=== PATIENT | male | born 1950 | race Caucasian/White ===

== ENCOUNTER 2019-04-06 08:47 | Outpatient (CLI) | payer MEDICARE, SELFPAY ==
--- NOTE | ~2019-04-06 | CT_ITS ---
EXAMINATION: CT lung screening DATE: 04/06/2019 09:25 INDICATION: Personal history of nicotine dependence, current smoker with 53 pack year history TECHNIQUE: Computed tomography (CT) of the chest was performed without intravenous contrast. The dose -length product (DLP) was 287.00 mGy-cm. Automated exposure control and iterative reconstruction tech nique were employed. COMPARISON: None FINDINGS: There is a 3 mm nodule of the right upper lobe on image 44. There is a 5 mm subpleural nodu le of the right upper lobe on image 54. There is a 6 mm subpleural nodule of the right lower lobe on image 84. There is mild emphysema. No pleural effusion or pneumothorax is identified. No pathological ly enlarged thoracic lymph nodes are identified. The heart size is normal. The lungs are free of acut e opacities. Calcified right hilar and mediastinal lymph nodes are consistent with old granulomatous disease. There is calcified coronary artery atherosclerosis. A 5 mm nonobstructing stone is present i n the right kidney. There is a 1.9 cm mildly hyperattenuating exophytic lesion of the right mid kidne y. A cyst is noted in the left kidney upper pole. There is moderate thoracic spondylosis. IMPRESSION: 1. Lung-RADS category 3S: Probably benign. Followup with noncontrast low-dose chest CT in 6 months is recommended. 2. Indeterminate exophytic lesion of the right mid kidney which could reflect proteinaceous cyst or s olid neoplasm. Recommend further evaluation by CT or MRI without and with contrast. Reviewed, dictated and finalized at location A. STICAL TILE DRILL PRESS OPERATOR IMPRESSION: 1. Lung-RADS category 3S: Probably benign. Followup with noncontrast low-dose c hest CT in 6 months is recommended. 2. Indeterminate exophytic lesion of the right mid kidney which could reflect p roteinaceous cyst or solid neoplasm. Recommend further evaluation by CT or MRI without and with contrast.
[2019-04-06 10:13] LABS: Blood Urea Nitrogen 16 mg/dL (9-20); Calcium 8.9 mg/dL (8.4-10.2); Carbon Dioxide 26 mmol/L (22-30); Chloride 104 mmol/L (98-107); Cholesterol 205 mg/dL (0-200); Estimated Glomerular Filt Rate > 60; Glucose 102 mg/dL (75-110); HDL Direct 42 mg/dL; Potassium 4.5 mmol/L (3.4-5.0); Sodium 139 mmol/L (137-145); Triglycerides 214 mg/dL (<150)
[2019-04-06 10:24] LABS: LDL Cholesterol Direct 108 mg/dL
[2019-04-06 14:08] LABS: Prostate Specific Antigen 0.6 ng/mL (< OR = 4.0)
== END 2019-04-06 08:48 | disposition home or self-care (01) ==
LOC: ANHIMG 08:50
PROVIDERS: PCP Internal Medicine; Visit Provider Internal Medicine
DX: Z12.2 Encounter for screening for malignant neoplasm of respiratory organs (principal); Z87.891 Personal history of nicotine dependence; R91.8 Other nonspecific abnormal finding of lung field; I10 Essential (primary) hypertension; E78.5 Hyperlipidemia, unspecified; Z12.5 Encounter for screening for malignant neoplasm of prostate
CPT/HCPCS: 36415; 80048; 80061; 84153; G0103; G0297

== ENCOUNTER 2019-04-13 08:45 | Outpatient (CLI) | payer MEDICARE, SELFPAY ==
--- NOTE | ~2019-04-13 | MR_ITS ---
EXAMINATION: MR abdomen wo/w con DATE: 04/13/2019 10:08 INDICATION: Disorder of kidney and ureter, unspecified. TECHNIQUE: Magnetic resonance imaging (MRI) of the abdomen was performed without and with 20 mL Multi Vidhi intravenous contrast. Sequences included coronal T2-weighted FS FSE, coronal and axial FIESTA F S, coronal LAVA-flex, axial LAVA, axial T2-weighted FSE, axial T1-weighted dual-echo FSPGR, axial STI R FSE, and axial DWI. Postcontrast sequences included coronal LAVA-flex and a time course of axial LA VA. COMPARISON: Chest CT 04/06/2019 FINDINGS: There are cysts in the liver measuring up to 11 mm. The gallbladder, spleen, pancreas, and adrenal gl ands are normal. There are simple cysts in the kidneys measuring up to 11 mm on the right. There is a 1.8 cm exophytic hemorrhagic cyst in right kidney. There are no dilated loops of bowel. There are no pathologically enlarged lymph nodes. There is no free intraperitoneal fluid. IMPRESSION: 1. 1.8 cm hemorrhagic cyst of right kidney correlating with the CT abnormality. Reviewed, dictated and finalized at location A. SIFICATION CASE MANAGER
[2019-04-13 10:19] LABS: Blood Urea Nitrogen 21 mg/dL (8-26); Estimated Glomerular Filt Rate > 60
== END 2019-04-13 08:46 | disposition home or self-care (01) ==
PROVIDERS: PCP Internal Medicine; Visit Provider Internal Medicine
DX: N28.1 Cyst of kidney, acquired (principal)
CPT/HCPCS: 74183; A9577

== ENCOUNTER 2019-09-04 11:13 | Outpatient (CLI) | payer MEDICARE, SELFPAY ==
--- NOTE | ~2019-09-04 | CT_ITS ---
EXAMINATION: CT lung screening EXAM DATE: 09/04/2019 11:34 INDICATION: Personal history of nicotine dependence. TECHNIQUE: Spiral low dose CT of the chest without contrast. Axial, coronal and sagittal images were reviewed. The dose-length product (DLP) for this examination was 243.36 mGy-cm. The exposure was t ailored according to patient size (auto mA exposure control), and iterative reconstruction (ASIR) was used as additional dose reduction technique. Comparison is made to prior examination from 04/06/2019. FINDINGS: Previously seen 3 mm upper lobe nodule unchanged on image 42. The 2 other previously descr ibed right lung pleural-based nodules have resolved. There are no new or suspicious pulmonary nodules . Small amount of linear by basilar atelectasis. Tracheobronchial tree is patent. There is no medi astinal, hilar or axillary lymphadenopathy. There are no pleural or pericardial effusions. There is no pneumothorax. Heart normal in size. There is mild coronary arterial calcification, arterial sclerosis. There is mild emphysema. Upper abdomen is unremarkable. There is thoracic spondylosis w ithout osteoblastic or osteolytic lesions identified. IMPRESSION: Lung-RADS category 2, benign appearance or behavior (<1% chance of malignancy); recommend continued LDCT screening in 1 year. Reviewed, dictated and finalized at location B.
== END 2019-09-04 11:14 | disposition home or self-care (01) ==
PROVIDERS: PCP Internal Medicine; Visit Provider Internal Medicine
DX: Z12.2 Encounter for screening for malignant neoplasm of respiratory organs (principal); Z87.891 Personal history of nicotine dependence; R91.8 Other nonspecific abnormal finding of lung field
CPT/HCPCS: G0297

== ENCOUNTER 2019-10-03 10:01 | Outpatient (CLI) | payer MEDICARE, SELFPAY ==
[2019-10-03 10:32] LABS: Alanine Aminotransferase 47 U/L (4-50); Albumin Level 4.5 g/dL (3.5-5.1); Alkaline Phosphatase 86 U/L (38-126); Aspartate Amino Transferase 35 U/L (17-59); Bilirubin,Total 0.7 mg/dL (0.2-1.3); Blood Urea Nitrogen 15 mg/dL (9-20); Calcium 8.6 mg/dL (8.4-10.2); Carbon Dioxide 22 mmol/L (22-30); Chloride 105 mmol/L (98-107); Cholesterol 240 mg/dL (0-200); Estimated Glomerular Filt Rate > 60; Glucose 102 mg/dL (75-110); HDL Direct 48 mg/dL; Potassium 4.8 mmol/L (3.4-5.0); Sodium 136 mmol/L (137-145); Triglycerides 212 mg/dL (<150)
[2019-10-03 10:41] LABS: LDL Cholesterol Direct 125 mg/dL
[2019-10-03 10:59] LABS: Prostate Specific Antigen 0.4 ng/mL (< OR = 4.0)
== END 2019-10-03 10:02 | disposition home or self-care (01) ==
PROVIDERS: PCP Internal Medicine; Visit Provider Nurse Practitioner
DX: E78.2 Mixed hyperlipidemia (principal); Z12.5 Encounter for screening for malignant neoplasm of prostate
CPT/HCPCS: 36415; 80053; 80061; 84153; G0103

== ENCOUNTER 2019-11-09 10:20 | Outpatient (CLI) | payer MEDICARE, SELFPAY ==
[2019-11-09 11:22] LABS: Cholesterol 175 mg/dL (0-200); HDL Direct 57 mg/dL; Triglycerides 158 mg/dL (<150)
[2019-11-09 11:33] LABS: LDL Cholesterol Direct 76 mg/dL
== END 2019-11-09 10:21 | disposition home or self-care (01) ==
LOC: ANHLAB 10:23
PROVIDERS: PCP Internal Medicine; Visit Provider Nurse Practitioner
DX: E78.2 Mixed hyperlipidemia (principal)
CPT/HCPCS: 36415; 80061

== ENCOUNTER 2020-04-02 13:37 | Outpatient (CLI) | payer MEDICARE, SELFPAY ==
[2020-04-02 14:18] LABS: Alanine Aminotransferase 54 U/L (4-50); Albumin Level 4.5 g/dL (3.5-5.1); Alkaline Phosphatase 76 U/L (38-126); Anion Gap 6 mmol/L (8-16); Aspartate Amino Transferase 45 U/L (17-59); Bilirubin,Total 0.8 mg/dL (0.2-1.3); Blood Urea Nitrogen 18 mg/dL (9-20); Carbon Dioxide 29 mmol/L (22-30); Chloride 100 mmol/L (98-107); Cholesterol 120 mg/dL (0-200); Estimated Glomerular Filt Rate > 60; Glucose 93 mg/dL (75-110); HDL Direct 36 mg/dL; Potassium 4.2 mmol/L (3.4-5.0); Sodium 135 mmol/L (137-145); Triglycerides 116 mg/dL (<150)
[2020-04-02 14:28] LABS: LDL Cholesterol Direct 48 mg/dL
== END 2020-04-02 13:38 | disposition home or self-care (01) ==
PROVIDERS: PCP Internal Medicine; Visit Provider Internal Medicine
DX: E78.2 Mixed hyperlipidemia (principal)
CPT/HCPCS: 36415; 80053; 80061

== ENCOUNTER 2020-10-08 09:12 | Outpatient (CLI) | payer MEDICARE, SELFPAY ==
[2020-10-08 09:45] LABS: Alanine Aminotransferase 34 U/L (4-50); Albumin Level 4.3 g/dL (3.5-5.1); Alkaline Phosphatase 111 U/L (38-126); Anion Gap 11 mmol/L (8-16); Aspartate Amino Transferase 28 U/L (17-59); Bilirubin,Total 0.6 mg/dL (0.2-1.3); Blood Urea Nitrogen 16 mg/dL (9-20); Calcium 9.1 mg/dL (8.4-10.2); Carbon Dioxide 23 mmol/L (22-30); Chloride 104 mmol/L (98-107); Cholesterol 169 mg/dL (0-200); Estimated Glomerular Filt Rate > 60; Glucose 122 mg/dL (65-110); HDL Direct 53 mg/dL; Potassium 4.2 mmol/L (3.4-5.0); Sodium 138 mmol/L (137-145); Triglycerides 120 mg/dL (<150)
[2020-10-08 09:56] LABS: LDL Cholesterol Direct 66 mg/dL
[2020-10-08 10:16] LABS: Prostate Specific Antigen 0.4 ng/mL (< OR = 4.0)
== END 2020-10-08 09:13 | disposition home or self-care (01) ==
PROVIDERS: PCP Internal Medicine; Visit Provider Nurse Practitioner
DX: E78.5 Hyperlipidemia, unspecified (principal); I10 Essential (primary) hypertension; Z79.899 Other long term (current) drug therapy; Z12.5 Encounter for screening for malignant neoplasm of prostate
CPT/HCPCS: 36415; 80053; 80061; 84153; G0103

== ENCOUNTER 2021-04-18 09:42 | Outpatient (CLI) | payer MEDICARE, SELFPAY ==
[2021-04-18 10:32] LABS: Hemoglobin A1C 5.9 % (<5.7)
[2021-04-18 10:34] LABS: Alanine Aminotransferase 40 U/L (4-50); Albumin Level 4.7 g/dL (3.5-5.1); Alkaline Phosphatase 123 U/L (38-126); Anion Gap 6 mmol/L (8-16); Aspartate Amino Transferase 30 U/L (17-59); Bilirubin,Total 0.7 mg/dL (0.2-1.3); Blood Urea Nitrogen 15 mg/dL (9-20); Calcium 9.4 mg/dL (8.4-10.2); Carbon Dioxide 22 mmol/L (22-30); Chloride 109 mmol/L (98-107); Cholesterol 182 mg/dL (0-200); Estimated Glomerular Filt Rate > 60; Glucose 116 mg/dL (65-110); HDL Direct 53 mg/dL; Potassium 4.2 mmol/L (3.4-5.0); Sodium 137 mmol/L (137-145); Triglycerides 148 mg/dL (<150)
[2021-04-18 10:45] LABS: LDL Cholesterol Direct 77 mg/dL
== END 2021-04-18 09:43 | disposition home or self-care (01) ==
PROVIDERS: PCP Internal Medicine; Visit Provider Nurse Practitioner
DX: E78.2 Mixed hyperlipidemia (principal); R73.02 Impaired glucose tolerance (oral)
CPT/HCPCS: 36415; 80053; 80061; 83036

== ENCOUNTER 2021-05-09 08:39 | Outpatient (CLI) | payer MEDICARE, SELFPAY ==
--- NOTE | ~2021-05-09 | CT_ITS ---
EXAMINATION: CT lung screening DATE: 05/09/2021 09:00 INDICATION: Tobacco use TECHNIQUE: Computed tomography (CT) of the chest was performed without intravenous contrast. The dose -length product was 298.17 mGy-cm. Automated exposure control and iterative reconstruction technique were employed. COMPARISON: CT dated 09/04/2019 FINDINGS: No significant pleural or pericardial effusion. Heart size is normal. No thoracic lymphaden opathy. The upper abdomen is unremarkable. There is bibasilar atelectasis. There is a 5 mm fissural n odule on the right, unchanged, likely benign. No new pulmonary nodules or masses. No endobronchial le sions. No acute osseous abnormality. IMPRESSION: 1. Lung-RADS category 2: Benign appearance or behavior. Continue annual screening with noncontrast lo w-dose chest CT in 12 months. Reviewed, dictated and finalized at location B. TION ADVISOR IMPRESSION: 1. Lung-RADS category 2: Benign appearance or behavior. Continue annual screeni ng with noncontrast low-dose chest CT in 12 months.
== END 2021-05-09 08:40 | disposition home or self-care (01) ==
PROVIDERS: PCP Internal Medicine; Visit Provider Internal Medicine
DX: Z12.2 Encounter for screening for malignant neoplasm of respiratory organs (principal); Z87.891 Personal history of nicotine dependence
CPT/HCPCS: 71271

== ENCOUNTER 2021-10-23 09:22 | Outpatient (CLI) | payer MEDICARE, SELFPAY ==
[2021-10-23 10:48] LABS: Prostate Specific Antigen 0.9 ng/mL (< OR = 4.0)
[2021-10-23 11:06] LABS: Hemoglobin A1C 5.8 % (<5.7)
[2021-10-23 11:50] LABS: Alanine Aminotransferase 36 U/L (6-50); Albumin Level 4.3 g/dL (3.5-5.1); Alkaline Phosphatase 114 U/L (38-126); Anion Gap 14 mmol/L (8-16); Aspartate Amino Transferase 31 U/L (17-59); Bilirubin,Total 0.5 mg/dL (0.2-1.3); Blood Urea Nitrogen 15 mg/dL (9-20); Calcium 9.2 mg/dL (8.4-10.2); Carbon Dioxide 14 mmol/L (22-30); Chloride 108 mmol/L (98-107); Cholesterol 135 mg/dL (0-200); Estimated Glomerular Filt Rate > 60; Glucose 106 mg/dL (65-110); HDL Direct 43 mg/dL; Potassium 4.5 mmol/L (3.4-5.0); Sodium 136 mmol/L (137-145); Triglycerides 102 mg/dL (<150)
[2021-10-23 12:00] LABS: LDL Cholesterol Direct 52 mg/dL
== END 2021-10-23 09:23 | disposition home or self-care (01) ==
LOC: ANHLAB 09:26
PROVIDERS: PCP Internal Medicine; Visit Provider Internal Medicine
DX: I10 Essential (primary) hypertension (principal); R73.02 Impaired glucose tolerance (oral); Z79.899 Other long term (current) drug therapy; E78.5 Hyperlipidemia, unspecified; Z12.5 Encounter for screening for malignant neoplasm of prostate
CPT/HCPCS: 36415; 80053; 80061; 83036; 84153; G0103

== ENCOUNTER 2022-05-01 09:34 | Outpatient (CLI) | payer MEDICARE, SELFPAY ==
[2022-05-01 11:41] LABS: Hemoglobin A1C 5.9 % (<5.7)
[2022-05-01 19:46] LABS: Alanine Aminotransferase 33 U/L (6-50); Albumin Level 4.4 g/dL (3.5-5.1); Alkaline Phosphatase 104 U/L (38-126); Anion Gap 4 mmol/L (8-16); Aspartate Amino Transferase 32 U/L (17-59); Bilirubin,Total 0.7 mg/dL (0.2-1.3); Blood Urea Nitrogen 12 mg/dL (9-20); Calcium 8.6 mg/dL (8.4-10.2); Carbon Dioxide 26 mmol/L (22-30); Chloride 105 mmol/L (98-107); Cholesterol 167 mg/dL (0-200); Estimated Glomerular Filt Rate > 60; Glucose 107 mg/dL (65-110); HDL Direct 47 mg/dL; Potassium 4.2 mmol/L (3.4-5.0); Sodium 135 mmol/L (137-145); Triglycerides 124 mg/dL (<150)
[2022-05-01 19:57] LABS: LDL Cholesterol Direct 68 mg/dL
== END 2022-05-01 09:35 | disposition home or self-care (01) ==
LOC: ANHGOSHLAB 09:37
PROVIDERS: PCP Internal Medicine; Visit Provider Nurse Practitioner
DX: E78.5 Hyperlipidemia, unspecified (principal); R73.02 Impaired glucose tolerance (oral)
CPT/HCPCS: 36415; 80053; 80061; 83036

== ENCOUNTER 2022-11-11 10:55 | Outpatient (CLI) | payer OTHER, SELFPAY ==
[2022-11-11 18:31] LABS: Hematocrit 48.5 % (42.0-52.0); Hemoglobin 16.3 g/dL (14.0-18.0); Mean Corpuscular HGB Conc 33.6 g/dl (32-36); Mean Corpuscular Hemoglobin 29.4 pg (26-34); Mean Corpuscular Volume 87.4 fl (80-100); Mean Platelet Volume 10.1 fl (7.4-10.4); Platelet Count Result 270 k/mm3 (150-375); Red Blood Count 5.55 M/mm3 (4.6-6.20); Red Cell Distribution Width 13.4 % (11.5-14.5); White Blood Count 8.7 K/mm3 (4.5-10.0)
[2022-11-11 19:21] LABS: Alanine Aminotransferase 36 U/L (6-50); Albumin Level 4.6 g/dL (3.5-5.1); Alkaline Phosphatase 117 U/L (38-126); Anion Gap 8 mmol/L (8-16); Aspartate Amino Transferase 32 U/L (17-59); Bilirubin,Total 0.7 mg/dL (0.2-1.3); Blood Urea Nitrogen 13 mg/dL (9-20); Calcium 9.2 mg/dL (8.4-10.2); Carbon Dioxide 28 mmol/L (22-30); Chloride 103 mmol/L (98-107); Estimated Glomerular Filt Rate > 60; Glucose 105 mg/dL (65-110); Potassium 4.3 mmol/L (3.4-5.0); Sodium 139 mmol/L (137-145)
[2022-11-11 19:48] LABS: Prostate Specific Antigen 0.5 ng/mL (< OR = 4.0)
[2022-11-11 20:28] LABS: Hemoglobin A1C 6.1 % (<5.7)
== END 2022-11-11 10:56 | disposition home or self-care (01) ==
PROVIDERS: PCP Family Medicine; Visit Provider Family Medicine
DX: Z00.00 Encounter for general adult medical examination without abnormal findings (principal); I10 Essential (primary) hypertension; E78.2 Mixed hyperlipidemia; Z72.0 Tobacco use
CPT/HCPCS: 36415; 80053; 83036; 84153; 85027; G0103

== ENCOUNTER 2022-11-17 15:30 | Outpatient (CLI) | payer MEDICARE, SELFPAY ==
--- NOTE | ~2022-11-17 | CT_ITS ---
EXAMINATION: CT lung screening DATE: 11/17/2022 16:17 INDICATION: Personal history of nicotine dependence, prior smoker with 50 pack year history TECHNIQUE: Computed tomography (CT) of the chest was performed without intravenous contrast. The dose -length product (DLP) was 362.02 mGy-cm. Automated exposure control and iterative reconstruction tech mPortico were employed. COMPARISON: 05/09/2021 FINDINGS: There is mild emphysema. There is a 3 mm nodule of the right upper lobe. There is a 3 mm casiano bpleural nodule of the left upper lobe. There is mild dependent atelectasis. Lungs are free of focal airspace opacities. No pleural effusion or pneumothorax. A 9 mm subcutaneous lesion of the left upper back likely represents a sebaceous cyst. There is mild gynecomastia. No pathologically enlarged thor acic lymph nodes are identified. The heart size is normal. Calcified coronary artery atherosclerosis is noted. Calcified right hilar and mediastinal lymph nodes are consistent with old granulomatous dis ease. There is a 7 mm cyst of the liver. There is moderate thoracic spondylosis. IMPRESSION: 1. Lung-RADS category 2: Benign appearance or behavior. Continue annual screening with noncontrast lo w-dose chest CT in 12 months. Reviewed, dictated and finalized at location B. IMPRESSION: 1. Lung-RADS category 2: Benign appearance or behavior. Continue annual screeni ng with noncontrast low-dose chest CT in 12 months.
== END 2022-11-17 15:31 | disposition home or self-care (01) ==
PROVIDERS: PCP Family Medicine; Visit Provider Family Medicine
DX: Z12.2 Encounter for screening for malignant neoplasm of respiratory organs (principal); Z87.891 Personal history of nicotine dependence
CPT/HCPCS: 71271

== ENCOUNTER 2023-02-11 02:31 | Day surgery (SDC) | payer MEDICARE, SELFPAY ==
[2023-01-25 15:35] VITALS: BMI 37.0
--- NOTE | 2023-02-09 12:38 | SUR.PREOP ---
Patient called regarding upcoming procedure. Reviewed preop instructions, appointment times, and procedure prep.
[2023-02-11 09:27] VITALS: BP 158/88; PULSE 92; RESP 18; TEMP 36.3; O2SAT 100; BMI 37.0
--- NOTE | 2023-02-11 10:10 | PM.HPGS ---
History of Present Illness History of Present Illness Consent: Risks, benefits, and alternatives have been discussed and questions answered. Patient agrees to proceed with procedure. Chief complaint: hx of colon polyps Narrative: Jeffry Castle is a 72 year old male Presents for screening colonoscopy. Patient was found to have benign adenoma at the time of last colonoscopy in 2018. Patient reports that his current weight appetite and bowel movements are normal. Patient denies abdominal pain. He has had no bleeding. Family history noncontributory. Review of Systems Review of Systems: Review of systems is noncontributory. [facility] Past Medical History Medical History (Updated 11/11/22 @ 10:00 by Davey Shrestha MD) Bilateral lower extremity edema Screening for prostate cancer Family History Family History Other Family history of coronary artery disease Social History Social History Smoking packs per day: 1 Smoking cigarettes per day: 20.0 Years smoked: 50 Smoking pack-years: 50.00 Smoking status: Former smoker Tobacco type: cigarettes Second hand tobacco smoke exposure: Yes Smoking end date: 05/14/19 Alcohol intake: never Substance use: never Substance use type: does not use Living arrangements: with family Spiritual care concerns: No Meds Home Medications and Allergies Home Medications Medication Instructions Recorded Confirmed Type atorvastatin 10 mg tablet 10 mg PO DAILY #90 tabs 10/28/22 01/25/23 Rx amlodipine 5 mg tablet 5 mg PO DAILY #90 tabs 11/11/22 01/25/23 Rx valsartan 320 mg tablet 320 mg PO DAILY 01/25/23 01/25/23 History Allergies Allergy/AdvReac Type Severity Reaction Status Date / Time No Known Allergies Allergy Verified 01/25/23 15:37 Vital Signs Vital Signs - 24 hr 02/11/23 09:27 Temperature 97.4 F L Pulse Rate 92 Respiratory Rate 18 Blood Pressure 158/88 H Pulse Oximetry 100 Oxygen Delivery Room Air Exam Narrative: Physical exam reveals patient to be alert. Vital signs stable. HEENT exam is unremarkable. Patient is anicteric. Lungs are clear to auscultation and percussion. Heart is without murmur or extra sounds. Abdomen bowel sounds are present soft nontender with no organomegaly. Digital external rectal exam is normal. Assessment and Plan Assessment and plan (1) Colon cancer screening: Code(s): Z12.11 - Encounter for screening for malignant neoplasm of colon Status: Acute Assessment and Plan: Patient presents for screening colonoscopy. He had a benign sessile serrated adenoma at the time of previous colonoscopy in 2018. Plan for surveillance colonoscopy now further recommendations may be given after endoscopy.
[2023-02-11] MEDS: LACTATED RINGERS 1,000 ML 150 ML IV CONT (10:18)
--- NOTE | 2023-02-11 10:43 | P.PNAN_ITS ---
Anes - Initial Pre Proc Eval Procedure: Operation Date: 02/11/23 10:45 Proposed Procedures p Colonoscopy - Jean Sandra MD Date/Time: 02/11/23 10:43 Surgeon: Jean Sandra MD Pre Op Diagnosis: hx of colon polyps Patient Data Age: 72 Gender: M Height: 1.8 m Weight: 120.5 kg Last Vital Signs Temp 97.4 F L 02/11/23 09:27 Pulse 92 02/11/23 09:27 Resp 18 02/11/23 09:27 BP 158/88 H 02/11/23 09:27 Pulse Ox 100 02/11/23 09:27 O2 Del Method Room Air 02/11/23 09:27 Allergies Allergy/AdvReac Type Severity Reaction Status Date / Time No Known Allergies Allergy Verified 01/25/23 15:37 Home Medications Medication Instructions Recorded Confirmed Type atorvastatin 10 mg tablet 10 mg PO DAILY #90 tabs 10/28/22 01/25/23 Rx amlodipine 5 mg tablet 5 mg PO DAILY #90 tabs 11/11/22 01/25/23 Rx valsartan 320 mg tablet 320 mg PO DAILY 01/25/23 01/25/23 History Patient hx anesthesia problems: none Family hx anesthesia problems: none Results Review: All pre-operative results and documents have been reviewed as part of the pre- operative evaluation. [facility] Past Medical History Medical History (Updated 11/11/22 @ 10:00 by Davey Shrestha MD) Bilateral lower extremity edema Screening for prostate cancer Family History Family History Other Family history of coronary artery disease Social History Social History Smoking packs per day: 1 Smoking cigarettes per day: 20.0 Years smoked: 50 Smoking pack-years: 50.00 Smoking status: Former smoker Tobacco type: cigarettes Second hand tobacco smoke exposure: Yes Smoking end date: 05/14/19 Alcohol intake: never Substance use: never Substance use type: does not use Living arrangements: with family Spiritual care concerns: No Anes - Eval Final PreProcedure Day of Procedure 02/11/23 10:43 Patient weight: obese Heart: regular rate and rhythm Lungs: clear to auscultation Airway: Mallampati scale class III Neurological: alert and oriented Last oral intake: >/= 8 hours ASA classification: III Emergent: no Anesthetic plan: proceed Anesthesia type and monitoring: general and standard monitoring Results Review: All pre-operative results and documents have been reviewed as part of the pre- operative evaluation. Informed Consent: The patient's anesthetic plan and its attendant risks and benefits were discussed with the patient/family/POA. Questions were solicited and answers provided to the satisfaction of the patient/family/POA.
[2023-02-11 11:38] VITALS: BP 107/60; PULSE 82; RESP 19; O2SAT 96
--- NOTE | 2023-02-11 11:40 | SUR.OPER ---
due to close proximity of ascending and cecal polyps, dr gong requested jar be labeled with both areas. another seperate jar labeled for different area of cecal polyps.
[2023-02-11 11:48] VITALS: BP 112/66; PULSE 74; RESP 20; O2SAT 96
[2023-02-11 11:58] VITALS: BP 122/73; PULSE 70; RESP 16; O2SAT 99
== END 2023-02-11 12:08 | disposition home or self-care (01) ==
PROVIDERS: PCP Family Medicine; Visit Provider Internal Medicine Gastroenterology
PROC: 0DJD8ZZ Inspection of Lower Intestinal Tract, Via Natural or Artificial Opening Endoscopic (ICD-10-PCS; CPT 45378; principal; 2023-02-11 10:45)
DX: Z12.11 Encounter for screening for malignant neoplasm of colon (principal); D12.0 Benign neoplasm of cecum; D12.8 Benign neoplasm of rectum; D12.2 Benign neoplasm of ascending colon; K57.30 Diverticulosis of large intestine without perforation or abscess without bleeding; Z87.891 Personal history of nicotine dependence
CPT/HCPCS: 45385; 88305; J2704; J7120

== ENCOUNTER 2023-05-19 07:59 | Outpatient (CLI) | payer MEDICARE, SELFPAY ==
[2023-05-19 18:59] LABS: Mean Corpuscular HGB Conc 32.7 g/dl (32-36); Mean Corpuscular Hemoglobin 29.1 pg (26-34); Mean Corpuscular Volume 89.1 fl (80-100); Mean Platelet Volume 10.4 fl (7.4-10.4); Platelet Count Result 257 k/mm3 (150-375); Red Cell Distribution Width 13.8 % (11.5-14.5); White Blood Count 8.4 K/mm3 (4.5-10.0)
[2023-05-19 20:24] LABS: Alanine Aminotransferase 36 U/L (6-50); Albumin Level 4.5 g/dL (3.5-5.1); Alkaline Phosphatase 121 U/L (38-126); Anion Gap 10 mmol/L (8-16); Aspartate Amino Transferase 65 U/L (17-59); Bilirubin,Total 0.7 mg/dL (0.2-1.3); Blood Urea Nitrogen 16 mg/dL (9-20); Calcium 9.2 mg/dL (8.4-10.2); Carbon Dioxide 24 mmol/L (22-30); Chloride 106 mmol/L (98-107); Cholesterol 162 mg/dL (0-200); Estimated Glomerular Filt Rate > 60; Glucose 122 mg/dL (65-110); HDL Direct 43 mg/dL; Potassium 4.2 mmol/L (3.4-5.0); Sodium 140 mmol/L (137-145); Triglycerides 151 mg/dL (<150)
[2023-05-19 20:36] LABS: LDL Cholesterol Direct 74 mg/dL
[2023-05-19 20:47] LABS: Vitamin D 25 Hydroxy 18.2 ng/mL
[2023-05-19 20:53] LABS: Prostate Specific Antigen 0.5 ng/mL (< OR = 4.0)
[2023-05-19 21:28] LABS: Hemoglobin A1C 6.7 % (<5.7)
== END 2023-05-19 08:00 | disposition home or self-care (01) ==
LOC: ANHGOSHLAB 08:00
PROVIDERS: PCP Family Medicine; Visit Provider Family Medicine
DX: E78.2 Mixed hyperlipidemia (principal); H57.819 Brow ptosis, unspecified; I10 Essential (primary) hypertension; N40.0 Benign prostatic hyperplasia without lower urinary tract symptoms; N52.9 Male erectile dysfunction, unspecified; R39.12 Poor urinary stream; Z79.899 Other long term (current) drug therapy; Z12.5 Encounter for screening for malignant neoplasm of prostate
CPT/HCPCS: 36415; 80053; 80061; 82306; 83036; 84153; 85027; G0103

== ENCOUNTER 2023-09-23 09:03 | Outpatient (CLI) | payer MEDICARE, SELFPAY ==
[2023-09-23 10:56] LABS: Alanine Aminotransferase 25 U/L (6-50); Albumin Level 4.4 g/dL (3.5-5.1); Alkaline Phosphatase 118 U/L (38-126); Aspartate Amino Transferase 50 U/L (17-59); Bilirubin,Total 0.8 mg/dL (0.2-1.3)
[2023-09-23 11:39] LABS: Hepatitis B Surface Antigen Negative (Negative)
[2023-09-23 11:44] LABS: HAV RESULT Negative (Negative); Hepatitis B Core IgM Result Negative (Negative)
[2023-09-23 11:56] LABS: Hepatitis C Virus Antibody Negative (Negative)
[2023-09-23 13:34] LABS: Hemoglobin A1C 5.5 % (<5.7)
== END 2023-09-23 09:04 | disposition home or self-care (01) ==
LOC: ANHGOSHLAB 09:04
PROVIDERS: PCP Family Medicine; Visit Provider Family Medicine
DX: R74.01 Elevation of levels of liver transaminase levels (principal); E11.9 Type 2 diabetes mellitus without complications; Z79.899 Other long term (current) drug therapy
CPT/HCPCS: 36415; 80074; 80076; 83036

== ENCOUNTER 2024-01-03 08:21 | Outpatient (CLI) | payer MEDICARE, SELFPAY ==
--- NOTE | ~2024-01-03 | CT_ITS ---
CT Scan of the Chest without Contrast: Clinical Indication: Lung cancer screening, nicotine dependence Technique: Contiguous sections were acquired throughout the chest without intravenous contrast. Dose reduction technique was used on this scan by utilizing automated exposure control and iterative recon struction technique. The dose-length product (DLP) was 238.61 mGy-cm. COMPARISON: 11/17/2022 Findings: There is no evidence of any significant mediastinal, hilar or axillary lymphadenopathy. Coronary mir ry calcifications are present. There is no evidence of pleural or pericardial effusion. The lungs are clear. No pulmonary nodules or infiltrates are noted. Images through the upper abdomen reveal no abnormalities. Impression: Lung RADS 1: Negative. 12 month follow-up screening CT advised. Reviewed, dictated and finalized at location . Impression: Lung RADS 1: Negative. 12 month follow-up screening CT advised.
== END 2024-01-03 08:22 | disposition home or self-care (01) ==
LOC: GOSHIMG 08:21
PROVIDERS: PCP Family Medicine; Visit Provider Family Medicine
DX: Z12.2 Encounter for screening for malignant neoplasm of respiratory organs (principal); Z87.891 Personal history of nicotine dependence
CPT/HCPCS: 71271

== ENCOUNTER 2024-03-27 10:50 | Outpatient (CLI) | payer MEDICARE, SELFPAY ==
[2024-03-27 13:43] LABS: Hematocrit 48.3 % (42.0-52.0); Hemoglobin 15.7 g/dL (14.0-18.0); Mean Corpuscular HGB Conc 32.5 g/dl (32-36); Mean Corpuscular Hemoglobin 28.4 pg (26-34); Mean Corpuscular Volume 87.3 fl (80-100); Mean Platelet Volume 10.1 fl (7.4-10.4); Platelet Count Result 270 k/mm3 (150-375); Red Blood Count 5.53 M/mm3 (4.6-6.20); Red Cell Distribution Width 13.8 % (11.5-14.5); White Blood Count 7.6 K/mm3 (4.5-10.0)
[2024-03-27 14:47] LABS: Alanine Aminotransferase 19 U/L (6-50); Albumin Level 4.2 g/dL (3.5-5.1); Alkaline Phosphatase 110 U/L (38-126); Anion Gap 6 mmol/L (4-12); Aspartate Amino Transferase 54 U/L (17-59); Bilirubin,Total 0.7 mg/dL (0.2-1.3); Blood Urea Nitrogen 18 mg/dL (9-20); Calcium 9.2 mg/dL (8.4-10.2); Carbon Dioxide 27 mmol/L (22-30); Chloride 106 mmol/L (98-107); Estimated Glomerular Filt Rate > 60; Glucose 90 mg/dL (65-110); Potassium 4.8 mmol/L (3.4-5.0); Sodium 139 mmol/L (137-145)
[2024-03-27 15:31] LABS: Hemoglobin A1C 5.3 % (<5.7)
== END 2024-03-27 10:51 | disposition home or self-care (01) ==
LOC: ANHGOSHLAB 10:51
PROVIDERS: PCP Family Medicine; Visit Provider Family Medicine
DX: R74.01 Elevation of levels of liver transaminase levels (principal); E11.9 Type 2 diabetes mellitus without complications; Z87.891 Personal history of nicotine dependence; Z79.899 Other long term (current) drug therapy
CPT/HCPCS: 36415; 80053; 82306; 83036; 85027

== ENCOUNTER 2024-06-19 09:14 | Day surgery (SDC) | payer MEDICARE, SELFPAY ==
[2024-02-16 14:18] VITALS: BMI 35.3
[2024-06-19 10:30] VITALS: BP 108/81; PULSE 93; RESP 18; TEMP 36.9; O2SAT 99
[2024-06-19] MEDS: LACTATED RINGERS 1,000 ML 150 ML IV CONT (10:36)
--- OUTSIDE RECORDS SUMMARY | 2024-06-19 11:34 | XMS_ITS | Clinical Summary ---
Author Organization [facility] Address [address] [place] [address] Care Team Providers Care Roll Picker Name Role Phone Landon Fajardo MD Primary Care Provider [phone] Source Comments [facility],non-owned Affiliates and Associated Physician Practices is amultiple site organization consisting of ambulatory clinics and hospital sitesin [place], [place], [place] and [place]. This disclosure is being madepursuant to the Care Everywhere program and may not contain all information available regarding this patient. Last updated 17.[facility] Allergies No known active allergies Medications * Be aware that medications may not be up to date on this document. Alwaysverify current medications with the patient. Medication Sig Dispensed Refills Start Date End Date Status oxycodone-acetamino phen (PERCOCET) 5-325 MG tablet Take 1 Tab by mouth every 4 hours as needed. 30 Tab 0 04/08/2012 Active acetaminophen (TYLENOL) 325 MG tablet Take 2 Tabs by mouth every 4 hours as needed for Fever (For temperature GREATER than 101 ). Maximum allowable Acetaminophen amount = 4 Grams (4000 mg) / 24 hours. 04/08/2012 Active finasteride (PROSCAR) 5 MG tablet Take 1 Tab by mouth once daily. 30 Tab 0 04/08/2012 Active tamsulosin CR 24hr (FLOMAX) 0.4 MG capsule Take 1 Cap by mouth once daily. Take 30 minutes after a meal at the same time each day. 30 Cap 0 04/08/2012 Active aspirin EC (ECOTRIN) 325 MG tablet Take 1 Tab by mouth once daily. 0 04/08/2012 Active bisACODYL EC (DULCOLAX) 5 MG tablet Take 2 Tabs by mouth once daily as needed for Constipation for 1 dose. 20 Tab 0 04/08/2012 Active Social History Tobacco Use Types Packs/Day Years Used Date Smoking Tobacco: Every Day Cigarettes 1 40 Tobacco Cessation:Ready to Q uit: No; Counseling Given: Yes Alcohol Use Standard Drinks/Week Comments No 0 (1 standard drink = 0.6 oz pur e alcohol) Sex and Gender Information Value Date Recorded Sex Assigned at Not on file Gender Identity Not on file Sexual Orientation Not on file Last Filed Vital Signs Vital Sign Reading Time Taken Comments Blood Pressure 140/98 04/08/2012 8:09 AM ADMINISTRATION INTERN Pulse 95 04/08/2012 8:09 AM ADMINISTRATION INTERN Temperature 36.7 C (98.1 F) 04/08/2012 8:09 AM ADMINISTRATION INTERN Respiratory Rate 16 04/08/2012 8:09 AM ADMINISTRATION INTERN Oxygen Saturation 96% 04/08/2012 8:09 AM ADMINISTRATION INTERN Inhaled Oxygen Concentration - - Weight 104.3 kg (230 lb) 03/23/2014 11:56 AM ADMINISTRATION INTERN Height 182.9 cm (6') 03/23/2014 11:56 AM ADMINISTRATION INTERN Body Mass Index 31.19 03/23/2014 11:56 AM ADMINISTRATION INTERN Plan of Treatment Health Maintenance Due Date Last Done Comments COLOGUARD (AGES 45-75) - COL ON CA SCREENING 1949 COLON MONITORING 1949 COLONOSCOPY - COLON CA SCREENING 1949 CT COLONOGRAPHY - COLON CA SCREENING 1950 Colorectal Cancer Screening 1949 FIT - COLON CA SCREENING 1949 FLEX SIG - COLON CA SCREENING 1949 LIPID TESTING 1949 HEPATITIS C SCREENING 02/24/1967 DTAP/TDAP/TD VACCINES (1 - Tdap) 02/29/1968 PNEUMOCOCCAL VACCINE 50+ (1 of 2 - PCV) 02/29/1968 ZOSTER VACCINE (1 of 2) 1999 COVID-19 VACCINE ( - 2023-2 5 season) 2023 Respiratory Syncytial Virus (RSV) Vaccine Pt: or over 60 yrs (1 - 1-dose 75+ series) 02/29/2024 DEPRESSION SCREENING 03/15/2024 MEDICARE AWV CALENDAR YEAR 2024 INFLUENZA VACCINE (Season Ended) 2024 HEPATITIS B VACCINE Aged Out No longe r eligible based on patient's age to complete this topic HIB VACCINE Aged Out No longer eligi ble based on patient's age to complete this topic HPV VACCINE Aged Out No longer eligi ble based on patient's age to complete this topic MENINGOCOCCAL (Group B) VACC INE SHARED DECISION-MAKING Aged Out No longer eligibl e based on patient's age to complete this topic MENINGOCOCCAL GROUPS A/C/Y/W VACCINE Aged Out No longer eligible b ased on patient's age to complete this topic Medical Devices Implanted Type Area Rn Integrated Device Identifier Shelf Expiration Date Model / Serial / Lot Orthohelix Plate X-Large Calcaneal Implanted:Qty: 1 on 04/06/2012 by Sav White, DO at [facility] Right: Ankle [id number] / / Orthohelix Non-Locking Screw 3.5 X 37.5 Implanted:Qty: 2 on 04/06/2012 by Sav White, DO at [facility] Ankle LIBRARY MEDIA SPECIALIST-011-35- [id number] / / Orthohelix Non-Locking Screw 3.5 X 35 Implanted:Qty: 3 on 04/06/2012 by Sav White, DO at [facility] Right: Ankle LIBRARY MEDIA SPECIALIST-011-35- 035 / / Orthohelix Non-Locking Screw 3.5 X 28 Implanted:Qty: 1 on 04/06/2012 by Sav White DO at [facility] Right: Ankle [id number] / / Orthohelix Non-Locking Screw 3.5 X 40 Implanted:Qty: 1 on 04/06/2012 by Sav White DO at [facility] Right: Ankle LIBRARY MEDIA SPECIALIST-011-35- 040 / / Orthohelix Non-Locking Screw 3.5 X 45 Implanted:Qty: 2 on 04/06/2012 by Sav White DO at [facility] Right: Ankle LIBRARY MEDIA SPECIALIST-011-35- 045 / / Orthohelix Locking Screw 3.5 X 35 Implanted:Qty: 1 on 04/06/2012 by Sav White DO at [facility] Right: Ankle LIBRARY MEDIA SPECIALIST-021-35- 035 / / Orthohelix Locking Screw 3.5 X 45 Implanted:Qty: 1 on 04/06/2012 by Sav White DO at [facility] Right: Ankle LIBRARY MEDIA SPECIALIST-021-35- 045 / / Orthohelix Non-Locking Screw 3.5 X 50 Implanted:Qty: 1 on 04/06/2012 by Sav Whtie DO at [facility] Right: Ankle LIBRARY MEDIA SPECIALIST-011-35- 050 / / Advance Directives * FULL RESUSCITATION (Latest Code Status on File) Date Activated Date Inactivated Comments 04/06/2012 3:15 PM 04/08/2012 11:51 AM Care Teams Roll Picker Relationship Specialty Start Date End Date Landon Fajardo MD [address] [place] [address] PCP - General Family Medicine 07/18/12
--- NOTE | 2024-06-19 12:03 | PM.IMHP ---
H&P: HPI History of Present Illness Date/Time: 06/19/24 12:04 Chief Complaint: History of colon polyps Narrative: The patient has a history of colonic polyps, the last colonoscopy was in 2022. He had cecal and ascending colon polyps, which were partially removed. The prep was not To adequate for completeness. Review of Systems Review of Systems: All systems reviewed & are unremarkable except as noted in HPI and below [facility] Past Medical History Medical History Bilateral lower extremity edema Screening for prostate cancer Family History Family History Other Family history of coronary artery disease Social History Social History Smoking packs per day: 1 Smoking cigarettes per day: 20.0 Years smoked: 50 Smoking pack-years: 50.00 Smoking status: Former smoker Tobacco type: cigarettes Second hand tobacco smoke exposure: Yes Smoking end date: 05/14/19 Alcohol intake: never Substance use: never Substance use type: does not use Living arrangements: with family Spiritual care concerns: No Meds Home Medications and Allergies Home Medications ?Medication ?Instructions ?Recorded ?Confirmed ?Type valsartan 320 mg tablet See Rx Instructions .Route 02/17/24 06/19/24 Rx .COMPLEX #90 tabs tamsulosin 0.4 mg capsule See Rx Instructions .Route 02/25/24 06/19/24 Rx .COMPLEX #90 caps cholecalciferol (vitamin D3) 1,250 See Rx Instructions .Route 04/05/24 06/19/24 Rx mcg (50,000 unit) capsule .COMPLEX #14 caps atorvastatin 10 mg tablet See Rx Instructions .Route 04/21/24 06/19/24 Rx .COMPLEX #90 tabs tirzepatide 12.5 mg/0.5 mL 12.5 mg (0.5 mL) subcut WEEKLY #2 05/05/24 06/19/24 Rx subcutaneous pen injector mL (Mounjaro) Allergies Allergy/AdvReac Type Severity Reaction Status Date / Time No Known Allergies Allergy Verified 06/19/24 10:27 Vital Signs Vital Signs - 24 hr 06/19/24 10:30 Temperature 98.4 F Pulse Rate 93 Respiratory Rate 18 Blood Pressure 108/81 Pulse Oximetry 99 Oxygen Delivery Room Air Exam Const: General: cooperative and healthy appearing Resp: Effort & Inspection: normal respiratory effort and able to speak in complete sentences Auscultation: clear to auscultation bilaterally Cardio: Rate: regular rate Rhythm: regular rhythm GI: Inspection: normal to inspection GI Palp: No No hepatosplenomegaly present Auscultation: normal bowel sounds Rectal Exam: deferred Skin: General skin exam: normal color Psych: Appearance: grossly normal Mental Status: mental status grossly normal Assessment and Plan Assessment and plan (1) Colon cancer screening: Code(s): Z12.11 - Encounter for screening for malignant neoplasm of colon Status: Acute Assessment and Plan: The patient is deemed a good candidate for the procedure. Consent signed. Will proceed.
--- NOTE | 2024-06-19 12:08 | WPDANESEPPF ---
Anes - Initial Pre Proc Eval Procedure: Operation Date: 06/19/24 11:30 Proposed Procedures p Diagnostic Colonoscopy - Alessio Jarrett MD Date/Time: 06/19/24 12:08 Surgeon: Alessio Jarrett MD Pre Op Diagnosis: History of Polyps Patient Data Age: 74 Gender: M Height: 1.8 m Weight: 105.25 kg Last Vital Signs Temp 36.9 C 06/19/24 10:30 Pulse 93 06/19/24 10:30 Resp 18 06/19/24 10:30 BP 108/81 06/19/24 10:30 Pulse Ox 99 06/19/24 10:30 O2 Del Method Room Air 06/19/24 10:30 Allergies Allergy/AdvReac Type Severity Reaction Status Date / Time No Known Allergies Allergy Verified 06/19/24 10:27 Home Medications ?Medication ?Instructions ?Recorded ?Confirmed ?Type valsartan 320 mg tablet See Rx Instructions .Route 02/17/24 06/19/24 Rx .COMPLEX #90 tabs tamsulosin 0.4 mg capsule See Rx Instructions .Route 02/25/24 06/19/24 Rx .COMPLEX #90 caps cholecalciferol (vitamin D3) 1,250 See Rx Instructions .Route 04/05/24 06/19/24 Rx mcg (50,000 unit) capsule .COMPLEX #14 caps atorvastatin 10 mg tablet See Rx Instructions .Route 04/21/24 06/19/24 Rx .COMPLEX #90 tabs tirzepatide 12.5 mg/0.5 mL 12.5 mg (0.5 mL) subcut WEEKLY #2 05/05/24 06/19/24 Rx subcutaneous pen injector mL (Mounjaro) Patient hx anesthesia problems: none Family hx anesthesia problems: none Results Review: All pre-operative results and documents have been reviewed as part of the pre-operative evaluation. [facility] Past Medical History Medical History Bilateral lower extremity edema Screening for prostate cancer Family History Family History Other Family history of coronary artery disease Social History Social History Smoking packs per day: 1 Smoking cigarettes per day: 20.0 Years smoked: 50 Smoking pack-years: 50.00 Smoking status: Former smoker Tobacco type: cigarettes Second hand tobacco smoke exposure: Yes Smoking end date: 05/14/19 Alcohol intake: never Substance use: never Substance use type: does not use Living arrangements: with family Spiritual care concerns: No Anes - Eval Final PreProcedure Day of Procedure 06/19/24 12:08 Patient weight: obese Heart: regular rate and rhythm Lungs: decreased breath sounds Airway: Mallampati scale class III Last oral intake: >/= 8 hours ASA classification: III Emergent: no Anesthetic plan: proceed Anesthesia type and monitoring: general GIVS and standard monitoring Results Review: All pre-operative results and documents have been reviewed as part of the pre-operative evaluation. Informed Consent: The patient's anesthetic plan and its attendant risks and benefits were discussed with the patient/family/POA. Questions were solicited and answers provided to the satisfaction of the patient/family/POA.
[2024-06-19 12:40] VITALS: BP 80/56; PULSE 87; RESP 16; O2SAT 97
--- NOTE | 2024-06-19 12:46 | WPDANESPN ---
Anes - Prog Note Post-Op Date/Time: 06/19/24 12:46 Cardiovascular status: normal Respiratory status: normal Airway patency: baseline Mental status: baseline Post-Op hydration status: normal Vital Signs: Last Vital Signs Temp 36.9 C 06/19/24 10:30 Pulse 87 06/19/24 12:40 Resp 16 06/19/24 12:40 BP 80/56 L 06/19/24 12:40 Pulse Ox 97 06/19/24 12:40 O2 Del Method Room Air 06/19/24 12:40 Pain Score (VAS): 0 I/O: Intake & Output 06/18/24 06/19/24 06/19/24 23:59 07:59 15:59 Intake Total 300 Balance 300 Patient Feedback: Patient satisfied with anesthetic care.
[2024-06-19 12:50] VITALS: BP 96/50; PULSE 81; RESP 17; O2SAT 97
[2024-06-19 13:00] VITALS: BP 91/62; PULSE 81; RESP 17; O2SAT 100
== END 2024-06-19 13:14 | disposition home or self-care (01) ==
PROVIDERS: PCP Family Medicine; Visit Provider Internal Medicine Gastroenterology
PROC: 0DJD8ZZ Inspection of Lower Intestinal Tract, Via Natural or Artificial Opening Endoscopic (ICD-10-PCS; CPT 45378; principal; 2024-06-19 11:30)
DX: Z12.11 Encounter for screening for malignant neoplasm of colon (principal); D12.0 Benign neoplasm of cecum; K57.30 Diverticulosis of large intestine without perforation or abscess without bleeding; K64.8 Other hemorrhoids
CPT/HCPCS: 45385

== ENCOUNTER 2024-06-19 13:59 | Outpatient (NON) | payer MEDICARE, SELFPAY ==
--- OUTSIDE RECORDS SUMMARY | 2024-06-20 15:35 | XMS_ITS | Clinical Summary ---
Author Organization [facility] Address [address] [address] Care Team Providers Care Bench Examiner Name Role Phone Landon Fajardo MD Primary Care Provider [phone] Source Comments [facility],non-owned Affiliates and Associated Physician Practices is amultiple site organization consisting of ambulatory clinics and hospital sitesin [place], [place], [place] and [place]. This disclosure is being madepursuant to the Care Everywhere program and may not contain all information available regarding this patient. Last updated 17.[facility] Allergies No known active allergies Medications * [...] Comments Blood Pressure 140/98 04/08/2012 8:09 AM BACK TENDER Pulse 95 04/08/2012 8:09 AM BACK TENDER Temperature 36.7 C (98.1 F) 04/08/2012 8:09 AM BACK TENDER Respiratory Rate 16 04/08/2012 8:09 AM BACK TENDER Oxygen Saturation 96% 04/08/2012 8:09 AM BACK TENDER Inhaled Oxygen Concentration - - Weight 104.3 kg (230 lb) 03/23/2014 11:56 AM BACK TENDER Height 182.9 cm (6') 03/23/2014 11:56 AM BACK TENDER Body Mass Index 31.19 03/23/2014 11:56 AM BACK TENDER Plan of Treatment Health Maintenance Due Date [...] this topic Medical Devices Implanted Type Area Screw Machine Operator Device Identifier Shelf Expiration Date Model / Serial / Lot Orthohelix Plate X-Large Calcaneal Implanted:Qty: 1 on 04/06/2012 by Sav White, DO at [facility] Right: Ankle CAT-002-XLP / / Orthohelix Non-Locking Screw 3.5 X 37.5 Implanted:Qty: 2 on 04/06/2012 by Sav White, DO at [facility] Ankle WAREHOUSE SELECTOR-011-35- 375 / / Orthohelix Non-Locking Screw 3.5 X 35 Implanted:Qty: 3 on 04/06/2012 by Sav White, DO at [facility] Right: Ankle WAREHOUSE SELECTOR-011-35- 035 / / Orthohelix Non-Locking Screw 3.5 X 28 Implanted:Qty: 1 on 04/06/2012 by Sav White DO at [facility] Right: Ankle MT-011-35-0 28 / / Orthohelix Non-Locking Screw 3.5 X 40 Implanted:Qty: 1 on 04/06/2012 by Sav White DO at [facility] Right: Ankle WAREHOUSE SELECTOR-011-35- 040 / / Orthohelix Non-Locking Screw 3.5 X 45 Implanted:Qty: 2 on 04/06/2012 by Sav White DO at [facility] Right: Ankle WAREHOUSE SELECTOR-011-35- 045 / / Orthohelix Locking Screw 3.5 X 35 Implanted:Qty: 1 on 04/06/2012 by Sav White DO at [facility] Right: Ankle WAREHOUSE SELECTOR-021-35- 035 / / Orthohelix Locking Screw 3.5 X 45 Implanted:Qty: 1 on 04/06/2012 by Sav White DO at [facility] Right: Ankle WAREHOUSE SELECTOR-021-35- 045 / / Orthohelix Non-Locking Screw 3.5 X 50 Implanted:Qty: 1 on 04/06/2012 by Sav White DO at [facility] Right: Ankle WAREHOUSE SELECTOR-011-35- 050 / / Advance Directives * FULL RESUSCITATION (Latest Code Status on File) Date Activated Date Inactivated Comments 04/06/2012 3:15 PM 04/08/2012 11:51 AM Care Teams Bench Examiner Relationship Specialty Start Date End Date Landon Fajardo MD [address] [place] [address] PCP - General Family Medicine 07/18/12
== END 2024-06-19 14:00 | disposition home or self-care (01) ==
LOC: ANHLAB 06-20 14:02
PROVIDERS: PCP Family Medicine; Visit Provider Internal Medicine Gastroenterology
DX: Z12.11 Encounter for screening for malignant neoplasm of colon (principal)
CPT/HCPCS: 88305

== ENCOUNTER 2024-10-05 14:21 | Outpatient (CLI) | payer MEDICARE, SELFPAY ==
--- OUTSIDE RECORDS SUMMARY | 2024-10-05 14:24 | XMS_ITS | Clinical Summary ---
Author Organization [facility] Address [address] [place] [address] Care Team Providers Care Manager R D Name Role Phone Landon Fajardo MD Primary Care Provider Source Comments [facility],non-owned Affiliates and Associated Physician Practices is amultiple site organization consisting of ambulatory clinics and hospital sitesin [place], [place], [place] and [place]. This disclosure is being madepursuant to the Care Everywhere program and may not contain all information available regarding this patient. Last updated 17.[facility] Allergies No known active allergies Medications * Be aware that medications may not be up to date on this document. Alwaysverify current medications with the patient. oxycodone-acet aminophen (PERCOCET) 5-325 MG tablet Take 1 Tab by mouth every 4 hours as needed. 30 Tab 0 3 Active acetaminophen (TYLENOL) 325 MG tablet Take 2 Tabs by mouth every 4 hours as needed for Fever (For temperature GREATER than 101 ). Maximum allowable Acetaminophen amount = 4 Grams (4000 mg) / 24 hours. 3 Active finasteride (PROSCAR) 5 MG tablet Take 1 Tab by mouth once daily. 30 Tab 0 3 Active tamsulosin CR 24hr (FLOMAX) 0.4 MG capsule Take 1 Cap by mouth once daily. Take 30 minutes after a meal at the same time each day. 30 Cap 0 3 Active aspirin EC (ECOTRIN) 325 MG tablet Take 1 Tab by mouth once daily. 0 3 Active bisACODYL EC (DULCOLAX) 5 MG tablet Take 2 Tabs by mouth once daily as needed for Constipation for 1 dose. 20 Tab 0 3 Active Social History Tobacco Use Types Packs/Day Years Used Date Smoking Tobacco: Every Day Cigarettes 1 40 Tobacco Cessation:Ready to Q uit: No; Counseling Given: Yes Alcohol Use Standard Drinks/Week Comments No 0 (1 standard drink = 0.6 oz pur e alcohol) Sex and Gender Information Value Date Recorded Sex Assigned at Not on file Legal Sex Male 2:02 PM CRICKET COACH Gender Identity Not on file Sexual Orientation Not on file Last Filed Vital Signs Vital Sign Reading Time Taken Comments Blood Pressure 140/98 04/08/2012 8:09 AM CRICKET COACH Pulse 95 04/08/2012 8:09 AM CRICKET COACH Temperature 36.7 C (98.1 F) 04/08/2012 8:09 AM CRICKET COACH Respiratory Rate 16 04/08/2012 8:09 AM CRICKET COACH Oxygen Saturation 96% 04/08/2012 8:09 AM CRICKET COACH Inhaled Oxygen Concentration - - Weight 104.3 kg (230 lb) 03/23/2014 11:56 AM CRICKET COACH Height 182.9 cm (6') 03/23/2014 11:56 AM CRICKET COACH Body Mass Index 31.19 03/23/2014 11:56 AM CRICKET COACH Plan of Treatment Health Maintenance Due Date [...] VACCINE (1 of 2) 1999 COVID-19 VACCINE (2023-2 5 season) 2023 Respiratory Syncytial Virus (RSV) Vaccine Pt: or over 60 yrs (1 - 1-dose 75+ series) 02/29/2024 DEPRESSION SCREENING 03/15/2024 MEDICARE AWV CALENDAR YEAR 2024 INFLUENZA VACCINE (#1) 2024 HEPATITIS B VACCINE Aged Out No [...] this topic Medical Devices Implanted Type Area Shipfitter Apprentice Device Identifier Shelf Expiration Date Model / Serial / Lot Orthohelix Plate X-Large Calcaneal Implanted:Qty: 1 on 04/06/2012 by Sav White, DO at [facility] Right: Ankle CAT-002-XLP / / Orthohelix Non-Locking Screw 3.5 X 37.5 Implanted:Qty: 2 on 04/06/2012 by Sav White DO at [facility] Ankle DJ INSTRUCTOR-011-35- 375 / / Orthohelix Non-Locking Screw 3.5 X 35 Implanted:Qty: 3 on 04/06/2012 by Sav White DO at [facility] Right: Ankle DJ INSTRUCTOR-011-35- 035 / / Orthohelix Non-Locking Screw 3.5 X 28 Implanted:Qty: 1 on 04/06/2012 by Sav White DO at [facility] Right: Ankle MT-011-35-0 28 / / Orthohelix Non-Locking Screw 3.5 X 40 Implanted:Qty: 1 on 04/06/2012 by Sav White DO at [facility] Right: Ankle DJ INSTRUCTOR-011-35- 040 / / Orthohelix Non-Locking Screw 3.5 X 45 Implanted:Qty: 2 on 04/06/2012 by Sav White DO at [facility] Right: Ankle DJ INSTRUCTOR-011-35- 045 / / Orthohelix Locking Screw 3.5 X 35 Implanted:Qty: 1 on 04/06/2012 by Sav White, DO at [facility] Right: Ankle DJ INSTRUCTOR-021-35- 035 / / Orthohelix Locking Screw 3.5 X 45 Implanted:Qty: 1 on 04/06/2012 by Sav White DO at [facility] Right: Ankle DJ INSTRUCTOR-021-35- 045 / / Orthohelix Non-Locking Screw 3.5 X 50 Implanted:Qty: 1 on 04/06/2012 by Sav White, DO at [facility] Right: Ankle DJ INSTRUCTOR-011-35- 050 / / Insurance AETNA MEDICARE ADV Member Subscriber Plan / Payer (Ef fective for All Dates) Name:Jeffry Mcclain Relation to Subscriber:Self Name:Jeffry Mcclain Payer ID:Not on file Type:Medicare-First30Days Care Address: [facility] [id number] [place] [address] AETNA MEDICARE ADV Member Subscriber Plan / Payer (Ef fective 2023-Present) Name:Jeffry Mcclain Relation to Subscriber:Self Name:Jeffry Mcclain Payer ID:Not on file Type:Medicare-First30Days Care Address: [address] [place] [address] SELF PAY NO INSURANCE Member Subscriber Plan / Payer (Ef fective for All Dates) Name:Jeffry Mcclain Member ID:Not on file Relation to Subscriber:Not on file Name:JEFFRY MCCLAIN Subscriber ID:Not on file (Home) Address: [address] [place] [address] Payer ID:Not on file Group ID:Not on file Type:Self Pay Address: [place], [place] AETNA MEDICARE ADV AETNA MEDICARE ADV Advance Directives * FULL RESUSCITATION (Latest Code Status on File) Date Activated Date Inactivated Comments 04/06/2012 3:15 PM 04/08/2012 11:51 AM Care Teams Manager R D Relationship Specialty Start Date End Date Landon Fajardo MD [address] [place] [address] PCP - General Family Medicine 07/18/12
[2024-10-05 18:47] LABS: Hematocrit 45.4 % (42.0-52.0); Hemoglobin 15.4 g/dL (14.0-18.0); Mean Corpuscular HGB Conc 33.9 g/dl (32-36); Mean Corpuscular Hemoglobin 28.9 pg (26-34); Mean Corpuscular Volume 85.3 fl (80-100); Platelet Count Result 261 k/mm3 (150-375); Red Blood Count 5.32 M/mm3 (4.6-6.20); White Blood Count 7.3 K/mm3 (4.5-10.0)
[2024-10-05 18:57] LABS: Alanine Aminotransferase 23 U/L (6-50); Albumin Level 4.2 g/dL (3.5-5.1); Alkaline Phosphatase 80 U/L (38-126); Anion Gap 9 mmol/L (4-12); Aspartate Amino Transferase 48 U/L (17-59); Bilirubin,Total 0.9 mg/dL (0.2-1.3); Blood Urea Nitrogen 17 mg/dL (9-20); Calcium 9.0 mg/dL (8.4-10.2); Carbon Dioxide 22 mmol/L (22-30); Chloride 107 mmol/L (98-107); Cholesterol 150 mg/dL (0-200); Estimated Glomerular Filt Rate > 60; Glucose 103 mg/dL (65-110); HDL Direct 47 mg/dL; Potassium 4.3 mmol/L (3.4-5.0); Sodium 138 mmol/L (137-145); Total Protein 7.6 g/dL (6.3-8.2); Triglycerides 112 mg/dL (<150)
[2024-10-05 19:33] LABS: Prostate Specific Antigen 0.6 ng/mL (< OR = 4.0)
[2024-10-05 21:03] LABS: Hemoglobin A1C 5.5 % (<5.7)
== END 2024-10-05 14:22 | disposition home or self-care (01) ==
LOC: ANHGOSHLAB 14:22
PROVIDERS: PCP Family Medicine; Visit Provider Family Medicine
DX: Z00.00 Encounter for general adult medical examination without abnormal findings (principal); Z79.899 Other long term (current) drug therapy; I10 Essential (primary) hypertension; E78.2 Mixed hyperlipidemia; E11.9 Type 2 diabetes mellitus without complications; Z12.5 Encounter for screening for malignant neoplasm of prostate
CPT/HCPCS: 36415; 80053; 80061; 82306; 83036; 84153; 85027; G0103

== ENCOUNTER 2024-10-06 09:04 | Outpatient (NON) | payer MEDICARE, SELFPAY ==
--- OUTSIDE RECORDS SUMMARY | 2024-10-06 09:10 | XMS_ITS | Clinical Summary ---
Author Organization [facility] Address [address] [place] [address] Care Team Providers Care Ironmolder Name Role Phone Landon Fajardo MD Primary Care Provider [phone] Source Comments [facility],non-owned Affiliates and Associated Physician Practices is amultiple site organization consisting of ambulatory clinics and hospital sitesin [place], [place], [place] and [place]. This disclosure is being madepursuant to the Care Everywhere program and may not contain all information available regarding this patient. Last updated 17.[facility] Allergies No known active allergies Medications * [...] on file Legal Sex Male 2:02 PM MID LEVEL PRACTITIONER Gender Identity Not on file Sexual Orientation Not on file Last Filed Vital Signs Vital Sign Reading Time Taken Comments Blood Pressure 140/98 04/08/2012 8:09 AM MID LEVEL PRACTITIONER Pulse 95 04/08/2012 8:09 AM MID LEVEL PRACTITIONER Temperature 36.7 C (98.1 F) 04/08/2012 8:09 AM MID LEVEL PRACTITIONER Respiratory Rate 16 04/08/2012 8:09 AM MID LEVEL PRACTITIONER Oxygen Saturation 96% 04/08/2012 8:09 AM MID LEVEL PRACTITIONER Inhaled Oxygen Concentration - - Weight 104.3 kg (230 lb) 03/23/2014 11:56 AM MID LEVEL PRACTITIONER Height 182.9 cm (6') 03/23/2014 11:56 AM MID LEVEL PRACTITIONER Body Mass Index 31.19 03/23/2014 11:56 AM MID LEVEL PRACTITIONER Plan of Treatment Health Maintenance Due Date [...] this topic Medical Devices Implanted Type Area Photogrammetric Compilation Specialist Device Identifier Shelf Expiration Date Model / Serial / Lot Orthohelix Plate X-Large Calcaneal Implanted:Qty: 1 on 04/06/2012 by Sav White, DO at [facility] Right: Ankle CAT-002-XLP / / Orthohelix Non-Locking Screw 3.5 X 37.5 Implanted:Qty: 2 on 04/06/2012 by Sav White DO at [facility] Ankle EMERGENCY SERVICES DIRECTOR-011-35- 375 / / Orthohelix Non-Locking Screw 3.5 X 35 Implanted:Qty: 3 on 04/06/2012 by Sav White DO at [facility] Right: Ankle EMERGENCY SERVICES DIRECTOR-011-35- 035 / / Orthohelix Non-Locking Screw 3.5 X 28 Implanted:Qty: 1 on 04/06/2012 by Sav White DO at [facility] Right: Ankle MT-011-35-0 28 / / Orthohelix Non-Locking Screw 3.5 X 40 Implanted:Qty: 1 on 04/06/2012 by Sav White DO at [facility] Right: Ankle EMERGENCY SERVICES DIRECTOR-011-35- 040 / / Orthohelix Non-Locking Screw 3.5 X 45 Implanted:Qty: 2 on 04/06/2012 by Sav White DO at [facility] Right: Ankle EMERGENCY SERVICES DIRECTOR-011-35- 045 / / Orthohelix Locking Screw 3.5 X 35 Implanted:Qty: 1 on 04/06/2012 by Sav White, DO at [facility] Right: Ankle EMERGENCY SERVICES DIRECTOR-021-35- 035 / / Orthohelix Locking Screw 3.5 X 45 Implanted:Qty: 1 on 04/06/2012 by Sav White DO at [facility] Right: Ankle EMERGENCY SERVICES DIRECTOR-021-35- 045 / / Orthohelix Non-Locking Screw 3.5 X 50 Implanted:Qty: 1 on 04/06/2012 by Sav White, DO at [facility] Right: Ankle EMERGENCY SERVICES DIRECTOR-011-35- 050 / / Insurance AETNA MEDICARE ADV AETNA MEDICARE ADV SELF PAY NO INSURANCE Member Subscriber Plan / Payer (Ef fective for All Dates) Name:Jeffry Mcclain Member ID:Not on file Relation to Subscriber:Not on file Name:JEFFRY MCCLAIN Subscriber ID:Not on file (Home) Address: [address] [place] [address] Payer ID:Not on file Group ID:Not on file Type:Self Pay Address: [place], [place] AETNA MEDICARE ADV AETNA MEDICARE ADV Advance Directives * FULL RESUSCITATION (Latest Code Status on File) Date Activated Date Inactivated Comments 04/06/2012 3:15 PM 04/08/2012 11:51 AM Care Teams Ironmolder Relationship Specialty Start Date End Date Landon Fajardo MD [address] [place] [address] PCP - General Family Medicine 07/18/12
[2024-10-06 15:49] LABS: MALB Creatinine Ratio 4.2 mg/g (0-30)
== END 2024-10-06 09:05 | disposition home or self-care (01) ==
PROVIDERS: PCP Family Medicine; Visit Provider Family Medicine
DX: E11.9 Type 2 diabetes mellitus without complications (principal); Z00.00 Encounter for general adult medical examination without abnormal findings; Z79.899 Other long term (current) drug therapy; I10 Essential (primary) hypertension; E78.2 Mixed hyperlipidemia
CPT/HCPCS: 82043

== ENCOUNTER 2024-10-13 13:05 | Outpatient (CLI) | payer MEDICARE, SELFPAY ==
--- NOTE | ~2024-10-13 | XR_ITS ---
XR abdomen/kub 1V 10/13/2024 13:24 INDICATION: Constipation flatulence TECHNIQUE: KUB COMPARISON: None FINDINGS: Bowel gas pattern is normal. There is a stone in the lower pole of the right kidney. There is no evidence of free air, mass, organomegaly, ascites or obstruction. No abnormal calculi are seen . The bones appear intact. Moderate lower thoracic and lumbar spondylosis. No acute osseous abnormal ity. IMPRESSION: 1: Right nephrolithiasis.. Reviewed, dictated and finalized at location A. IMPRESSION: 1: Right nephrolithiasis..
== END 2024-10-13 13:06 | disposition home or self-care (01) ==
LOC: GOSHIMG 13:05
PROVIDERS: PCP Family Medicine; Visit Provider Family Medicine
DX: N20.0 Calculus of kidney (principal)
CPT/HCPCS: 74018

== ENCOUNTER 2024-11-10 09:58 | Outpatient (CLI) | payer MEDICARE, SELFPAY ==
--- OUTSIDE RECORDS SUMMARY | 2024-11-10 10:02 | XMS_ITS | Clinical Summary ---
Author Organization [facility] Address [address] [place] [address] Care Team Providers Care Valet Manager Name Role Phone Landon Fajardo MD Primary Care Provider [phone] Source Comments [facility],non-owned Affiliates and Associated Physician Practices is amultiple site organization consisting of ambulatory clinics and hospital sitesin [place], [place], [place] and [place]. This disclosure is being madepursuant to the Care Everywhere program and may not contain all information available regarding this patient. Last updated 17.[facility] Allergies No known active allergies Medications * [...] on file Legal Sex Male 2:02 PM INCIDENT RESPONSE ENGINEER Gender Identity Not on file Sexual Orientation Not on file Last Filed Vital Signs Vital Sign Reading Time Taken Comments Blood Pressure 140/98 04/08/2012 8:09 AM INCIDENT RESPONSE ENGINEER Pulse 95 04/08/2012 8:09 AM INCIDENT RESPONSE ENGINEER Temperature 36.7 C (98.1 F) 04/08/2012 8:09 AM INCIDENT RESPONSE ENGINEER Respiratory Rate 16 04/08/2012 8:09 AM INCIDENT RESPONSE ENGINEER Oxygen Saturation 96% 04/08/2012 8:09 AM INCIDENT RESPONSE ENGINEER Inhaled Oxygen Concentration - - Weight 104.3 kg (230 lb) 03/23/2014 11:56 AM INCIDENT RESPONSE ENGINEER Height 182.9 cm (6') 03/23/2014 11:56 AM INCIDENT RESPONSE ENGINEER Body Mass Index 31.19 03/23/2014 11:56 AM INCIDENT RESPONSE ENGINEER Plan of Treatment Health Maintenance Due Date [...] this topic Medical Devices Implanted Type Area Manufacturers Service Representative Device Identifier Shelf Expiration Date Model / Serial / Lot Orthohelix Plate X-Large Calcaneal Implanted:Qty: 1 on 04/06/2012 by Sav White DO at [facility] Right: Ankle CAT-002-XLP / / Orthohelix Non-Locking Screw 3.5 X 37.5 Implanted:Qty: 2 on 04/06/2012 by Sav White DO at [facility] Ankle FINANCIAL INSTITUTION TREASURER-011-35- 375 / / Orthohelix Non-Locking Screw 3.5 X 35 Implanted:Qty: 3 on 04/06/2012 by Sav White DO at [facility] Right: Ankle FINANCIAL INSTITUTION TREASURER-011-35- 035 / / Orthohelix Non-Locking Screw 3.5 X 28 Implanted:Qty: 1 on 04/06/2012 by Sav White DO at [facility] Right: Ankle MT-011-35-0 28 / / Orthohelix Non-Locking Screw 3.5 X 40 Implanted:Qty: 1 on 04/06/2012 by Sav White DO at [facility] Right: Ankle FINANCIAL INSTITUTION TREASURER-011-35- 040 / / Orthohelix Non-Locking Screw 3.5 X 45 Implanted:Qty: 2 on 04/06/2012 by Sav White DO at [facility] Right: Ankle FINANCIAL INSTITUTION TREASURER-011-35- 045 / / Orthohelix Locking Screw 3.5 X 35 Implanted:Qty: 1 on 04/06/2012 by Sav White DO at [facility] Right: Ankle FINANCIAL INSTITUTION TREASURER-021-35- 035 / / Orthohelix Locking Screw 3.5 X 45 Implanted:Qty: 1 on 04/06/2012 by Sav White DO at [facility] Right: Ankle FINANCIAL INSTITUTION TREASURER-021-35- 045 / / Orthohelix Non-Locking Screw 3.5 X 50 Implanted:Qty: 1 on 04/06/2012 by Sav White DO at [facility] Right: Ankle FINANCIAL INSTITUTION TREASURER-011-35- 050 / / Insurance AETNA MEDICARE ADV AETNA MEDICARE ADV SELF PAY NO INSURANCE Member Subscriber Plan / Payer (Ef fective for All Dates) Name:Jeffry Mcclain Member ID:Not on file Relation to Subscriber:Not on file Name:JEFFRY MCCLAIN Subscriber ID:Not on file (Home) Address: [address] [place] [address] Payer ID:Not on file Group ID:Not on file Type:Self Pay Address: [place], [place] AETNA MEDICARE ADV T MEDICARE ADV Advance Directives * FULL RESUSCITATION (Latest Code Status on File) Date Activated Date Inactivated Comments 04/06/2012 3:15 PM 04/08/2012 11:51 AM Care Teams Valet Manager Relationship Specialty Start Date End Date Landon Fajardo MD [address] [place] [id number] PCP - General Family Medicine 07/18/12
--- NOTE | 2024-11-10 10:09 | EST_ITS ---
Patient Info Name: Jeffry Castle Age: 74 years : 1950 Gender: Male Ht: 71 in Wt: 230 lbs BSA: 2.32 m2 HR: 76 bpm BP: 128 / 77 mmHg Exam Date: 11/10/2024 10:19 AM Patient Status: O Admit Date: 11/10/2024 Exam Type: CA stress echo Treadmill exercise stress echocardiogram is performed. Staff Attending Provider: Davey Shrestha Exercise Technologist: Scarlett Geller Exercise Physician: Alejandro Chong DO Summary 1. 1. Negative Jamir exercise stress test for ischemic ST changes by ECG criteria. 2. 2. Good functional capacity, achieving 7 METs of workload. 3. 3. Appropriate HR response to exercise. 4. 4. Appropriate HR recovery at 1 minute post exercise. 5. 5. Negative stress echocardiogram for ischemia by wall motion analysis. 6. 6. Patient informed of the above results. Stress Echo Findings Left Ventricle Appropriate increase in LV endocardial thickening with systole. Appropriate augmentation of contractility with systole. No wall motion abnormality. Left Ventricle Normal LV systolic function, no wall motion abnormality. Protocol: Jamir Stress ECG Details Stage: REST Duration (min): 1 min : 15 sec Speed (mph): 0.0 Grade (%): 0 HR (bpm): 77 SBP (mmHg): 128 DBP (mmHg): 77 METS: --- Stage: REST Duration (min): 17 min : 19 sec Speed (mph): 0.0 Grade (%): 0 HR (bpm): 80 SBP (mmHg): 128 DBP (mmHg): 77 METS: --- Stage: STAGE 1 Duration (min): 1 min : 0 sec Speed (mph): 1.7 Grade (%): 10 HR (bpm): 101 SBP (mmHg): 128 DBP (mmHg): 77 METS: --- Stage: STAGE 1 Duration (min): 2 min : 0 sec Speed (mph): 1.7 Grade (%): 10 HR (bpm): 113 SBP (mmHg): 128 DBP (mmHg): 77 METS: --- Stage: STAGE 1 Duration (min): 3 min : 0 sec Speed (mph): 1.7 Grade (%): 10 HR (bpm): 117 SBP (mmHg): 153 DBP (mmHg): 72 METS: --- Stage: STAGE 2 Duration (min): 1 min : 0 sec Speed (mph): 2.5 Grade (%): 12 HR (bpm): 122 SBP (mmHg): 153 DBP (mmHg): 72 METS: --- Stage: STAGE 2 Duration (min): 2 min : 0 sec Speed (mph): 2.5 Grade (%): 12 HR (bpm): 132 SBP (mmHg): 154 DBP (mmHg): 68 METS: --- Stage: STAGE 2 Duration (min): 2 min : 1 sec Speed (mph): 0.0 Grade (%): 0 HR (bpm): 132 SBP (mmHg): 154 DBP (mmHg): 68 METS: --- Stage: RECOVERY Duration (min): 0 min : 58 sec Speed (mph): 0.0 Grade (%): 0 HR (bpm): 119 SBP (mmHg): 154 DBP (mmHg): 68 METS: --- Stage: RECOVERY Duration (min): 1 min : 58 sec Speed (mph): 0.0 Grade (%): 0 HR (bpm): 111 SBP (mmHg): 154 DBP (mmHg): 68 METS: --- Stage: RECOVERY Duration (min): 2 min : 58 sec Speed (mph): 0.0 Grade (%): 0 HR (bpm): 99 SBP (mmHg): 154 DBP (mmHg): 68 METS: --- Stage: RECOVERY Duration (min): 3 min : 58 sec Speed (mph): 0.0 Grade (%): 0 HR (bpm): 96 SBP (mmHg): 141 DBP (mmHg): 62 METS: --- Stage: RECOVERY Duration (min): 4 min : 58 sec Speed (mph): 0.0 Grade (%): 0 HR (bpm): 94 SBP (mmHg): 142 DBP (mmHg): 62 METS: --- Stage: RECOVERY Duration (min): 5 min : 58 sec Speed (mph): 0.0 Grade (%): 0 HR (bpm): 90 SBP (mmHg): 142 DBP (mmHg): 62 METS: --- Stage: RECOVERY Duration (min): 6 min : 58 sec Speed (mph): 0.0 Grade (%): 0 HR (bpm): 92 SBP (mmHg): 136 DBP (mmHg): 63 METS: --- Stage: RECOVERY Duration (min): 7 min : 58 sec Speed (mph): 0.0 Grade (%): 0 HR (bpm): 93 SBP (mmHg): 136 DBP (mmHg): 63 METS: --- Stage: RECOVERY Duration (min): 8 min : 18 sec Speed (mph): 0.0 Grade (%): 0 HR (bpm): --- SBP (mmHg): 136 DBP (mmHg): 63 METS: --- Rest HR: 80 bpm Peak HR: 133 bpm Rest Sys BP: 128 mmHg Peak Sys BP: 154 mmHg Max Pred HR: 145 bpm % Max Pred HR: 92 % Target HR: 123 bpm Max RPP: 20,482 bpm*mmHg Murlilo Score: 0 Termination Reason: Reached target heart rate or workload Cardiac Symptoms: Shortness of breath Max ST Seg Deviation: -1 mm Total Time: 5 min : 1 sec Rest Carter BP: 77 mmHg Peak Carter BP: 68 mmHg Angina Score: None Total METS: 7.1 Resting ECG Sinus rhythm. Stress ECG No ST changes. Arrhythmias None. Report Signatures Stress ECG Echo
== END 2024-11-10 09:59 | disposition home or self-care (01) ==
PROVIDERS: PCP Family Medicine; Visit Provider Family Medicine
DX: Z79.899 Other long term (current) drug therapy (principal)
CPT/HCPCS: 93351

== ENCOUNTER 2025-01-03 08:15 | Outpatient (CLI) | payer MEDICARE, SELFPAY ==
--- NOTE | ~2025-01-03 | CT_ITS ---
EXAMINATION: CT lung screening DATE: 01/03/2025 08:32 INDICATION: Personal history of nicotine dependence TECHNIQUE: Computed tomography (CT) of the chest was performed without intravenous contrast. The dose-length product was 304.89 mGy-cm. Automated exposure control and iterative reconstruction technique were employed. COMPARISON: CT dated 01/03/2024 FINDINGS: No thoracic lymphadenopathy. No significant vascular abnormality. There is atherosclerosis of the coronary arteries. Heart size normal. No significant pleural or pericardial effusion. There is dependent atelectasis. No endobronchial lesions. No pneumothorax. Calcified granulomas right hilum and subcarinal lymph nodes. No suspicious pulmonary nodules or masses. No focal airspace consolidation. No pneumothorax. No acute osseous abnormality. IMPRESSION: 1. Lung-RADS category 1: Negative. Continue annual screening with noncontrast low-dose chest CT in 12 months. Reviewed, dictated and finalized at location O. IMPRESSION: 1. Lung-RADS category 1: Negative. Continue annual screening with noncontrast l ow-dose chest CT in 12 months.
== END 2025-01-03 08:16 | disposition home or self-care (01) ==
LOC: MICIMG 08:15
PROVIDERS: PCP Family Medicine; Visit Provider Family Medicine
DX: Z12.2 Encounter for screening for malignant neoplasm of respiratory organs (principal); Z87.891 Personal history of nicotine dependence
CPT/HCPCS: 71271

== ENCOUNTER 2025-02-15 09:04 | Outpatient (CLI) | payer MEDICARE, SELFPAY ==
--- NOTE | ~2025-02-15 | XR_ITS ---
EXAMINATION: XR shoulder LT min 2V, 02/15/2025 9:47 [employer] HISTORY: Pain in unspecified shoulder, pain x 2 months, no inj,no marita COMPARISON: No comparisons available. Findings: No acute fracture or malalignment. Moderate degenerative changes Soft tissues unremarkable. Impression: No acute fracture or malalignment. Reviewed, dictated and finalized at location P. [employer] Impression: No acute fracture or malalignment.
== END 2025-02-15 09:05 | disposition home or self-care (01) ==
LOC: GOSHIMG 09:04
PROVIDERS: PCP Nurse Practitioner Family; Visit Provider Nurse Practitioner Family
DX: M25.512 Pain in left shoulder (principal)
CPT/HCPCS: 73030